=== PATIENT | female | born 1945 | race Caucasian/White ===

== ENCOUNTER 2019-07-05 10:50 | Outpatient (CLI) | payer MEDICARE, BC ==
--- NOTE | 2019-07-06 05:44 | XRAY Report ---
Reason: RT CALCANEAL PX Procedure Date: 07/05/2019 Accession Number: [id number] / [id number] Procedure: XR - Calcaneus RT CPT Code: FULL RESULT: EXAM: RIGHT CALCANEUS RADIOGRAPHY EXAM DATE: 07/05/2019 11:21 AM. CLINICAL HISTORY: RT CALCANEAL PX. COMPARISON: None. TECHNIQUE: 2 views. FINDINGS: Bones: No fracture seen. No focal area of bone destruction. Plantar calcaneal osteophyte. Joints: No dislocation seen. Joints appear intact as imaged. Soft Tissues: Grossly unremarkable. IMPRESSION: 1. Plantar calcaneal osteophyte. [facility]
== END 2019-07-05 10:51 | disposition home or self-care (01) ==
LOC: DI 10:50
PROVIDERS: ATTEND Podiatrist
DX: M77.31 Calcaneal spur, right foot (principal)